=== PATIENT | female | born 1960 | race Caucasian/White ===

== ENCOUNTER 2022-01-10 07:57 | Outpatient (REF) | payer OTHER, SELFPAY ==
[2022-01-10 11:14] LABS: Hematocrit 41.7 % (37.0-47.0); Hemoglobin 13.8 g/dl (12.0-16.0); Mean Corpuscular HGB Conc 33.1 g/dl (31.0-35.0); Mean Corpuscular Hemoglobin 32.2 pg (27.0-33.0); Mean Corpuscular Volume 97.2 fL (80.0-98.0); Mean Platelet Volume 11.7 fL (9.4-12.3); Platelet Count 291 X10*3/uL (160-400); Red Blood Count 4.29 X10*6/uL (4.20-5.50); Red Cell Distribution Width 13.4 % (11.0-16.0); White Blood Count 6.1 X10*3/uL (4.8-10.8)
[2022-01-10 11:44] LABS: Alanine Aminotransferase 13 U/L (0-31); Albumin Level 4.2 g/dL (3.5-5.0); Alkaline Phosphatase 72 U/L (39-117); Anion Gap 13 (12-20); Aspartate Amino Transferase 15 U/L (5-31); Bilirubin Total 0.2 mg/dL (0.0-1.0); Blood Urea Nitrogen 17 mg/dL (9-16); Calcium 9.3 mg/dL (8.4-10.2); Carbon Dioxide 31 mmol/L (22-29); Chloride 102 mmol/L (96-108); Cholesterol 236 mg/dL; Estimated Glomerular Filt Rate > 60; Glucose Fasting 95 mg/dL (60-99); HDL Cholesterol 51 mg/dL; LDL Cholesterol Calculated 153 mg/dl; Potassium 4.2 mmol/L (3.3-5.1); Sodium 142 mmol/L (135-145); Total Protein 6.9 g/dL (6.5-8.0); Triglycerides 164 mg/dL
== END 2022-01-10 07:58 | disposition home or self-care (01) ==
LOC: HO.WFDLDS 07:57
PROVIDERS: Visit Provider Hospitalist
DX: Z00.00 Encounter for general adult medical examination without abnormal findings (principal); Z13.9 Encounter for screening, unspecified; E78.00 Pure hypercholesterolemia, unspecified; I10 Essential (primary) hypertension
CPT/HCPCS: 36415; 80053; 80061; 84443; 85027

== ENCOUNTER 2022-09-15 13:42 | Outpatient (REF) | payer OTHER, SELFPAY ==
--- NOTE | ~2022-09-15 | XR_ITS ---
EXAMINATION: XR HIP, RIGHT CLINICAL INFORMATION: Slipped upper femoral epiphysis nontraumatic COMPARISON: None available. TECHNIQUE: Two views of the right hip. FINDINGS: There is normal femoral head alignment with the acetabulum. The joint space is maintained. No loose bodies, periarticular spurring or soft tissue calcification. No acute fracture or dislocation. XR/XR hip RT min 2V IMPRESSION: Unremarkable right hip exam.
== END 2022-09-15 13:43 | disposition home or self-care (01) ==
LOC: HO.XRAY 13:42
PROVIDERS: PCP Hospitalist; Visit Provider Hospitalist
DX: M93.003 Unspecified slipped upper femoral epiphysis (nontraumatic), unspecified hip (principal); M25.551 Pain in right hip
CPT/HCPCS: 73502

== ENCOUNTER 2023-04-15 14:47 | Outpatient (AMB) | payer OTHER, SELFPAY ==
--- NOTE | 2023-04-15 15:02 | MHC.PC.OV ---
Vital Signs 04/15/23 15:03 Height 5 ft 1.5 in Weight 121 lb BMI 22.5 BP 130/88 Blood Pressure Location Lt brachial Position Sitting Respiration 13 Pulse 78 Pulse Source Pulse Oximeter Temp 97.5 F Temp Source Temporal Artery Scan Pulse Oximetry (%) 99 Oxygen Delivery Method Room Air Intake Visit Reasons: mood and high chol Intake Note: Patient has a patch of dry skin in middle of her palms that itches and sometimes bleed. Patient also has a ventolin Inhaler she would like refilled. 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 Accompanied by: Self / Same As Patient Allergies aspirin Adverse Reaction (Severe, Verified 04/15/23 15:17) Vomiting Seasonal Allergies Adverse Reaction (Intermediate, Verified 04/15/23 15:17) Nasal congestion adhesive Adverse Reaction (Mild, Verified 04/15/23 15:17) rash metal Adverse Reaction (Severe, Uncoded 04/15/23 15:17) hives Medication List - Last Reconciled 04/15/23 by Magalis Joseph CNP albuterol sulfate 90 mcg/actuation (Ventolin HFA) 2 puffs inhalation Q6H PRN atorvastatin 40 mg PO BEDTIME 90 days fluoxetine 40 mg PO DAILY 90 days hydrochlorothiazide 25 mg PO DAILY 90 days lisinopril 40 mg PO DAILY loratadine (Allergy Relief (loratadine)) 10 mg PO DAILY 90 days metoprolol tartrate 100 mg PO DAILY Tobacco use date assessed: 09/15/22 Fall risk assessment: 2 + Falls in past year Last assessed Fall Risk: 04/15/23 Dental Screening Dental Screen Date: 04/15/23 Did you have a dental visit in the last 12 months?: Yes Did you have a dental problem in the last 6 months where you did not have access to dental care?: No Was dental information given to patient?: Patient has dentist HPI HPI Comments History of Present Illness Details 62-year-old female presents for mood disorder and hyperlipidemia follow-up. She has past medical history significant for hypertension, hyperlipidemia, asthma, anxiety, and depression. Her former PCP was WADE, who no longer works for this office. Her last office visit was on 09/15/2022. She had a complete physical exam and blood work done in January 2022. Her Lab results were unrevealing except for elevated triglycerides, total cholesterol, and LDL, 164/236/156 respectively. She notes she has been taking her medication as prescribed. She reports controlled anxiety and depression symptoms on fluoxetine. She states she has attempted to connected to a therapist but was unsuccessful. She does not want therapy at this time. She reports dry skin to the middle of the palm of her right hand with occasional itching. She reports excessive using of her hands for physical work in and outside of her home. She uses hydrocortisone cream. [facility] Medical History (Updated 04/15/23 @ 15:48 by Magalis Joseph CNP) Injury of left lower arm No pertinent past medical history Surgical History (Updated 04/15/23 @ 15:14 by Kita Berman MA) History of surgery on left wrist No pertinent past surgical history Family History (Updated 04/15/23 @ 15:14 by Kita Berman MA) Other Mental health disorder Substance abuse Social History Housing: Other Housing Other:: mobile home Patient Tobacco Use Status: Former Tobacco user Tobacco use type: Cigarette e-Cigarette/Vaping Use: Never Used Second Hand Smoke Exposure: No service: No Current occupational status: retired Current occupational exposures/hazards: No Cognitive needs: No Hearing needs: No Vision needs: Yes Questionnaire PHQ-9 Over the last 2 weeks, how often have you been bothered by any of the following problems? 1. Little interest or pleasure in doing things: several days 2. Feeling down, depressed, or hopeless: not at all 3. Trouble falling or staying asleep, or sleeping too much: several days 4. Feeling tired or having little energy: several days 5. Poor appetite or overeating: not at all 6. Feeling bad about yourself - or that you are a failure or have let yourself or your family down: more than half the days 7. Trouble concentrating on things, such as reading the newspaper or watching television: not at all 8. Moving or speaking so slowly that other people could have noticed. Or the opposite - being so fidgety or restless that you have been moving around a lot more than usual: not at all 9. Thoughts that you would be better off or of hurting yourself in some way: not at all Total score: 5 Depression Screening Interpretation: Positive Depression Screening Follow-up: Existing condition and In treatment Depression Screening Done: Yes Source: Developed by Drs. Dov Melgar, Gina Ray, Brigido Leon and colleagues, with an educational guero from [employer]. Thrive Questionnaire Date Thrive assessed: 09/15/22 HUANG-7 AMB Questionnaire HUANG-7 Date HUANG - 7 assessed: 04/15/23 Feeling nervous, anxious, or on edge: 1 = Several days Not being able to stop or control worryin = Nearly every day Worrying too much about different things: 1 = Several days Trouble relaxin = Several days Being so restless that it is hard to sit still: 0 = Not at all Becoming easily annoyed or irritable: 1 = Several days Feeling afraid as if something awful might happen: 0 = Not at all Total HUANG-7 score (0-4 normal; 5-9 mild; 10-14 moderate; 15-21 severe): 7 Source: Developed by Drs. Dov Melgar, Gina Ray, Brigido Leon and colleagues, with an educational guero from [employer]. ACT Questionnaire In the past 4 weeks, how much of the time did your asthma keep you from getting as much done at work, school or at home?: Some of the time During the past 4 weeks, how often have you had shortness of breath?: 1-2 times a week During the past 4 weeks, how often did your asthma symptoms wake you up at night or earlier than usual in the morning?: Once a week During the past 4 weeks, how often have you had to use your rescue inhaler or nebulizer medication?: 1-2 times a week How would you rate your asthma control during the past 4 weeks?: Somewhat controlled ACT Interpretation: Positive Score: 15 Review of Systems Const Details: Const Denies chills, Denies fatigue, Denies fever(s), Denies headache(s) and Denies weakness ENT Denies dizziness and Denies headache(s) Card Denies chest pain, Denies lightheadedness, Denies dyspnea and Denies other (Palpitations) Resp Denies cough, Denies dyspnea, Denies wheezing and Denies other ( shortness of breath) GI Denies abdominal pain, Denies melena, Denies hematochezia, Denies change in bowel habits, Denies dyspepsia and Denies nausea Denies hematuria and Denies dysuria Musc Denies abnormal gait, Denies myalgias, Denies arthralgias, Denies numbness and Denies tingling Skin/Breast Denies rash, Denies unusual bruising and Denies wounds Neuro Denies abnormal gait, Denies dizziness, Denies headache(s), Denies memory loss, Denies numbness, Denies Sensory deficit (Neuro), Denies tingling and Denies weakness Psych Denies anxiety, Denies depression, Denies memory loss Endo Denies cold intolerance, Denies fatigue, Denies heat intolerance, Denies polydipsia and Denies polyuria Aller/Immun Denies wheezing Physical exam (Primary Care) Vital Signs: Last Vital Signs Temp 97.5 F 04/15/23 15:03 Pulse 78 04/15/23 15:03 Resp 13 04/15/23 15:03 BP 130/88 04/15/23 15:03 Pulse Ox 99 04/15/23 15:03 Oxygen Delivery Method Room Air 04/15/23 15:03 BMI result Body Mass Index 22.5 Tobacco/Smoking Status: Tobacco use Status Tobacco use date assessed 09/15/22 09/15/22 11:31 Patient Tobacco Use Status Former Tobacco user 09/15/22 11:31 Tobacco use type Cigarette 09/15/22 11:31 e-Cigarette/Vaping Use Never Used 09/15/22 11:31 Depression Screening Interpretation: Positive Depression Screening Follow-up: Existing condition and In treatment Thrive Assessment: Date of Thrive Assessment Date Thrive assessed 09/15/22 09/15/22 11:48 Const Other: General: no acute distress and well developed Nutritional Appearance: well nourished Orientation/consciousness: patient oriented x3 HENMT Head: Yes normocephalic and Yes atraumatic Eyes General: appearance normal, both eyes and all related structures Pupils: Equal, round and reactive pupils present EOM: EOMs intact bilaterally Resp Effort & Inspection: normal respiratory effort Auscultation: clear to auscultation bilaterally Cardio Rate: regular rate Rhythm: regular rhythm Heart sounds: S1 normal heart sound present, S2 normal heart sound present, no gallops, no murmurs and no rubs GI Palpation (GI): No Abdominal aortic bruit present, Soft to palpation, nontender, No hepatosplenomegaly present and No Rebound tenderness present Auscultation: normal bowel sounds General: Yes no CVA tenderness Back/Spine/Pelvis Back: no CVA tenderness Cervical Spine: cervical ROM normal and No Cervical spine tenderness Thoracic/Lumbar Spine: thoraco-lumbar ROM normal, No pain with thoraco-lumbar ROM, No thoracic spinal tenderness and No lumbar spinal tenderness Extrem General: Yes normal to inspection, No edema and No calf tenderness Skin General: warm and dry. Normal skin color. Normal skin turgor Lesions: no lesions Rashes: no rashes Trauma: no lacerations or abrasions Wounds: no wounds Nails: normal Neuro General: patient oriented x3, gait normal and no focal neuro deficit Cranial nerves: Yes Equal, round and reactive pupils present Cognition (Neuro): normal cognition Gait exam (Neuro): Normal gait present Sensory Exam: No Sensory deficit (Neuro) Psych Appearance: grossly normal Affect: normal affect Attitude: cooperative Thought process: Normal thought process present Assessment and Plan Assessment & Plan (1) Hypertension: Code(s): I10 - Essential (primary) hypertension Qualifiers: Hypertension type: primary hypertension Qualified Code(s): I10 - Essential (primary) hypertension Plan: Blood pressures control, 130/88, within goal of less than 140/90 Continue with current treatment regimen Low-sodium diet encouraged Follow-up in 1 month for complete physical exam Return sooner with symptoms or concerns Verbalized understanding and agreed with treatment plan. (2) High cholesterol: Code(s): E78.00 - Pure hypercholesterolemia, unspecified Plan: Elevated triglycerides, total cholesterol, and LDL, 164/236/156 respectively, in January 2023. Routine labs including lipid panel ordered. Will review results and make changes to her care plan as needed. (3) Anxiety and depression: Code(s): F41.9 - Anxiety disorder, unspecified; F32.A - Depression, unspecified Plan: HUANG-7 and PHQ-9 scores revealed mild anxiety and depression respectively Continue with current treatment regimen Routine exercise encouraged Follow-up in 1 month Return sooner with worsening or new symptoms Verbalized understanding and agreed with treatment plan. (4) Callus of hand: Code(s): L84 - Corns and callosities Plan: She reports dry skin to the middle of the palm of her right hand with occasional itching. She reports excessive using of her hands for physical work in and outside of her home. She uses hydrocortisone cream. Continue to use hydrocortisone cream for itching. Advised to use moisturizer for dry skin. Avoid excessive or repeated use of hand for physical work Return with worsening signs and symptoms Verbalized understanding and agreed with treatment plan. (5) Asthma: Code(s): J45.909 - Unspecified asthma, uncomplicated Plan: ACT score is 15 and indicates partially controlled asthma. Ventolin refilled. Use as prescribed. Follow-up in 1 month. Return sooner with worsening or new symptoms. Verbalized understanding and agreed with the treatment plan. (6) Laboratory tests ordered as part of a complete physical exam (CPE): Code(s): Z00.00 - Encounter for general adult medical examination without abnormal findings Plan: Fasting labs ordered as part of a complete physical exam. Advised to fast for at least 10 hours before getting labs drawn. May drink water Verbalized understanding and agreed with treatment plan. Orders: Orders Lipid Panel Today Z00.00 - Encounter for general adult medical examination without abnormal findings UA CC w/rflx Micro + Cult Today Z00.00 - Encounter for general adult medical examination without abnormal findings Complete Blood Count Auto Diff Today Z00.00 - Encounter for general adult medical examination without abnormal findings Comprehensive [place]. Panel Fast Today Z00.00 - Encounter for general adult medical examination without abnormal findings TSH reflex Free T4 Today Z00.00 - Encounter for general adult medical examination without abnormal findings Medications: Changed From albuterol sulfate 90 mcg/actuation (Ventolin HFA) 2 puffs inhalation Q6H PRN 8.5 grams 8RF shortness of breath or wheezing J45.20 - Mild intermittent asthma, uncomplicated To albuterol sulfate 90 mcg/actuation (Ventolin HFA) 2 puffs inhalation Q4-6H 30 days PRN 8.5 grams 6RF shortness of breath or wheezing J45.20 - Mild intermittent asthma, uncomplicated Coding Level of Care Code Est Pt Level 4 (85948) Diagnoses Primary hypertension I10 Hypertension type: primary hypertension High cholesterol E78.00 Anxiety and depression F41.9; F32.A Callus of hand L84 Asthma J45.909 Laboratory tests ordered as part of a complete physical exam (CPE) Z00.00
[2023-04-15 15:03] VITALS: BP 130/88; PULSE 78; RESP 13; TEMP 36.4; O2SAT 99; BMI 22.5
== END 2023-04-15 15:49 | disposition home or self-care (01) ==
PROVIDERS: PCP Hospitalist; Visit Provider Nurse Practitioner Family
DX: I10 Essential (primary) hypertension (principal); E78.00 Pure hypercholesterolemia, unspecified; F41.9 Anxiety disorder, unspecified; F32.A Depression, unspecified; L84 Corns and callosities; J45.909 Unspecified asthma, uncomplicated; Z00.00 Encounter for general adult medical examination without abnormal findings
CPT/HCPCS: 99214

== ENCOUNTER 2023-06-12 07:41 | Outpatient (REF) | payer OTHER, SELFPAY ==
[2023-06-12 12:16] LABS: MANUAL DIFF FLAG NO
[2023-06-12 12:33] LABS: Basophils Absolute Auto 0.1 X10*3/uL (0.0-0.2); Eosinophils Absolute Auto 0.1 X10*3/uL (0.0-0.4); Eosinophils Percent Auto 1.8 % (0-4); Hemoglobin 14.7 g/dl (12.0-16.0); Imm Gran Abs Auto 0.01 X10*3/uL (0.00-0.03); Imm Gran Pct Auto 0.1 % (0.0-0.4); Lymphocytes Absolute Auto 2.1 X10*3/uL (1.2-4.9); Lymphocytes Percent Auto 29.1 % (20-40); Mean Corpuscular HGB Conc 32.7 g/dl (31.0-35.0); Mean Corpuscular Hemoglobin 31.4 pg (27.0-33.0); Mean Corpuscular Volume 96.2 fL (80.0-98.0); Mean Platelet Volume 11.5 fL (9.4-12.3); Monocytes Absolute Auto 0.7 X10*3/uL (0.1-1.2); Monocytes Percent Auto 10.3 % (2-11); Neutrophils Absolute Auto 4.1 x10*3/uL (2.0-8.3); Neutrophils Percent Auto 57.7 % (45-73); Platelet Count 329 X10*3/uL (160-400); Red Blood Count 4.68 X10*6/uL (4.20-5.50); Red Cell Distribution Width 13.5 % (11.0-16.0); White Blood Count 7.1 X10*3/uL (4.8-10.8)
[2023-06-12 13:18] LABS: Alanine Aminotransferase 11 U/L (0-31); Albumin Level 4.2 g/dL (3.5-5.0); Alkaline Phosphatase 62 U/L (39-117); Anion Gap 15 (12-20); Aspartate Amino Transferase 14 U/L (5-31); Bilirubin Total 0.3 mg/dL (0.0-1.0); Blood Urea Nitrogen 18 mg/dL (9-16); Calcium 9.7 mg/dL (8.4-10.2); Carbon Dioxide 30 mmol/L (22-29); Chloride 102 mmol/L (96-108); Cholesterol 301 mg/dL (<200); Estimated Glomerular Filt Rate > 60; Glucose Fasting 104 mg/dL (60-99); HDL Cholesterol 54 mg/dL (>40); LDL Cholesterol Calculated 215 mg/dL (<100); Potassium 3.8 mmol/L (3.3-5.1); Sodium 143 mmol/L (135-145); Total Protein 7.8 g/dL (6.5-8.0); Triglycerides 161 mg/dL (<150)
[2023-06-12 13:50] LABS: TSH reflex Free T4 4.05 uIU/mL (0.32-4.0)
[2023-06-12 15:24] LABS: Free T4 (Free Thyroxine) 0.91 ng/dL (0.71-1.85)
== END 2023-06-12 07:42 | disposition home or self-care (01) ==
LOC: HO.WFDLDS 07:41
PROVIDERS: Visit Provider Nurse Practitioner Family
DX: Z00.00 Encounter for general adult medical examination without abnormal findings (principal)
CPT/HCPCS: 36415; 80053; 80061; 84439; 84443; 85025

== ENCOUNTER 2023-06-17 08:23 | Outpatient (AMB) | payer OTHER, SELFPAY ==
[2023-06-17 08:38] VITALS: BP 142/80; PULSE 57; RESP 13; O2SAT 99; BMI 21.6
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
== END 2023-06-17 09:28 | disposition home or self-care (01) ==
PROVIDERS: PCP Nurse Practitioner Family; Visit Provider Nurse Practitioner Family
DX: Z00.00 Encounter for general adult medical examination without abnormal findings (principal); E78.00 Pure hypercholesterolemia, unspecified; I10 Essential (primary) hypertension; F41.9 Anxiety disorder, unspecified; F32.A Depression, unspecified; E03.8 Other specified hypothyroidism; R73.01 Impaired fasting glucose; F17.210 Nicotine dependence, cigarettes, uncomplicated
CPT/HCPCS: 96127; 99396

== ENCOUNTER 2023-09-11 09:51 | Outpatient (AMB) | payer OTHER, SELFPAY ==
[2023-09-11 10:16] VITALS: BP 164/80; PULSE 62; RESP 13; TEMP 36.4; O2SAT 99; BMI 21.9
--- NOTE | 2023-09-11 10:16 | MHC.PC.OV ---
Vital Signs 09/11/23 10:16 09/11/23 11:32 Height 5 ft 1.5 in Weight 118 lb BMI 21.9 BP 164/80 H 160/90 H Blood Pressure Location Rt brachial Rt brachial Position Sitting Sitting Respiration 13 Pulse 62 96 Pulse Source Pulse Oximeter Palpation Temp 97.5 F Temp Source Temporal Artery Scan Pulse Oximetry (%) 99 Oxygen Delivery Method Room Air Intake Visit Reasons: f/u HLD, subclinical HT-H, elev fasting glucose Intake Note: Patient needs refill on fluoxetine and loratidine and lisinopril and metoprolol. 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 Accompanied by: Self / Same As Patient Allergies aspirin Adverse Reaction (Severe, Verified 09/11/23 11:25) Vomiting Seasonal Allergies Adverse Reaction (Intermediate, Verified 09/11/23 11:25) Nasal congestion adhesive Adverse Reaction (Mild, Verified 09/11/23 11:25) rash metal Adverse Reaction (Severe, Uncoded 09/11/23 11:25) hives Medication List - Last Reconciled 09/11/23 by Magalis Joseph CNP albuterol sulfate 90 mcg/actuation (Ventolin HFA) 2 puffs inhalation Q4-6H PRN 30 days atorvastatin 40 mg PO BEDTIME 90 days fluoxetine 40 mg PO DAILY 90 days hydrochlorothiazide 25 mg PO DAILY 90 days lisinopril 40 mg PO DAILY loratadine (Allergy Relief (loratadine)) 10 mg PO DAILY 90 days metoprolol tartrate 100 mg PO DAILY Tobacco use date assessed: 09/11/23 Fall risk assessment: 1 Fall in past year Last assessed Fall Risk: 09/11/23 Dental Screening Dental Screen Date: 09/11/23 Did you have a dental visit in the last 12 months?: No Did you have a dental problem in the last 6 months where you did not have access to dental care?: No Was dental information given to patient?: Patient has dentist HPI HPI Comments History of Present Illness Details In 62-year-old female presents for elevated fasting glucose, hyperlipidemia, and subclinical hypothyroidism follow-up She notes that she was unable to get her blood work done because she was too busy driving to and from [place] to provide care for her brother who is very ill. She has been fasting and plans doing blood work today She reports increased anxiety and depression with no known triggers She notes that her mother and 's anniversaries are approaching She denies acute symptoms at this time [facility] Medical History Injury of left lower arm No pertinent past medical history Surgical History History of surgery on left wrist No pertinent past surgical history Family History (Updated 09/11/23 @ 10:25 by Kita Berman MA) Brother Blindness Other Mental health disorder Substance abuse Social History Household Members: Significant Other and Other Housing: Other Housing Other:: mobile home Alcohol intake: current Alcohol intake frequency: holidays/special occasions only Patient Tobacco Use Status: Current someday Tobacco user Tobacco use type: Cigarette Cigarettes Per Day: 2 Years Smoked: 13 e-Cigarette/Vaping Use: Never Used Second Hand Smoke Exposure: No Substance Use Type: Marijuana service: No Current occupational status: retired Current occupational exposures/hazards: No Sexual orientation: Unable to collect Gender identity: Unable to collect Cognitive needs: No Hearing needs: No Vision needs: Yes Questionnaire PHQ-9 Over the last 2 weeks, how often have you been bothered by any of the following problems? 1. Little interest or pleasure in doing things: nearly every day 2. Feeling down, depressed, or hopeless: more than half the days 3. Trouble falling or staying asleep, or sleeping too much: several days 4. Feeling tired or having little energy: nearly every day 5. Poor appetite or overeating: several days 6. Feeling bad about yourself - or that you are a failure or have let yourself or your family down: nearly every day 7. Trouble concentrating on things, such as reading the newspaper or watching television: several days 8. Moving or speaking so slowly that other people could have noticed. Or the opposite - being so fidgety or restless that you have been moving around a lot more than usual: more than half the days 9. Thoughts that you would be better off or of hurting yourself in some way: not at all Total score: 16 Depression Screening Interpretation: Positive Depression Screening Follow-up: Existing condition and In treatment Depression Screening Done: Yes Source: Developed by Drs. Dov Melgar, Brigido Griffin and colleagues, with an educational guero from [employer]. Thrive Questionnaire Date Thrive assessed: 06/17/23 HUANG-7 AMB Questionnaire HUANG-7 Date HUANG - 7 assessed: 06/17/23 Feeling nervous, anxious, or on edge: 3 = Nearly every day Not being able to stop or control worryin = Nearly every day Worrying too much about different things: 3 = Nearly every day Trouble relaxin = More than half the days Being so restless that it is hard to sit still: 1 = Several days Becoming easily annoyed or irritable: 3 = Nearly every day Feeling afraid as if something awful might happen: 2 = More than half the days Total HUANG-7 score (0-4 normal; 5-9 mild; 10-14 moderate; 15-21 severe): 17 Source: Developed by Drs. Dov Melgar, Brigido Griffin and colleagues, with an educational guero from [employer]. Review of Systems Const Details: Const Denies chills, Denies fatigue, Denies fever(s), Denies headache(s) and Denies weakness ENT Denies dizziness and Denies headache(s) Card Denies chest pain, Denies lightheadedness, Denies dyspnea and Denies other (Palpitations) Resp Denies cough, Denies dyspnea, Denies wheezing and Denies other ( shortness of breath) GI Denies abdominal pain, Denies melena, Denies hematochezia, Denies change in bowel habits, Denies dyspepsia and Denies nausea Denies hematuria and Denies dysuria Musc Denies abnormal gait, Denies myalgias, Denies arthralgias, Denies numbness and Denies tingling Skin/Breast Denies rash, Denies unusual bruising and Denies wounds Neuro Denies abnormal gait, Denies dizziness, Denies headache(s), Denies memory loss, Denies numbness, Denies Sensory deficit (Neuro), Denies tingling and Denies weakness Psych Reports anxiety, Reports depression, Denies memory loss Endo Denies cold intolerance, Denies fatigue, Denies heat intolerance, Denies polydipsia and Denies polyuria Aller/Immun Denies wheezing Physical exam (Primary Care) Vital Signs: Last Vital Signs Temp 97.5 F 09/11/23 10:16 Pulse 62 09/11/23 10:16 Resp 13 09/11/23 10:16 BP 164/80 H 09/11/23 10:16 Pulse Ox 99 09/11/23 10:16 Oxygen Delivery Method Room Air 09/11/23 10:16 BMI result Body Mass Index 21.9 Tobacco/Smoking Status: Tobacco use Status Tobacco use date assessed 09/11/23 09/11/23 10:23 Patient Tobacco Use Status Current someday Tobacco 09/11/23 10:23 Tobacco use type Cigarette 09/11/23 10:23 e-Cigarette/Vaping Use Never Used 09/11/23 10:23 Depression Screening Interpretation: Positive Depression Screening Follow-up: Existing condition and In treatment Thrive Assessment: Date of Thrive Assessment Date Thrive assessed 06/17/23 09/11/23 10:23 Const Other: General: no acute distress and well developed Nutritional Appearance: well nourished Orientation/consciousness: patient oriented x3 HENMT Head: Yes normocephalic and Yes atraumatic Eyes General: appearance normal, both eyes and all related structures Pupils: Equal, round and reactive pupils present EOM: EOMs intact bilaterally Resp Effort & Inspection: normal respiratory effort Auscultation: clear to auscultation bilaterally Cardio Rate: regular rate Rhythm: regular rhythm Heart sounds: S1 normal heart sound present, S2 normal heart sound present, no gallops, no murmurs and no rubs GI Palpation (GI): No Abdominal aortic bruit present, Soft to palpation, nontender, No hepatosplenomegaly present and No Rebound tenderness present Auscultation: normal bowel sounds General: Yes no CVA tenderness Back/Spine/Pelvis Back: no CVA tenderness Cervical Spine: cervical ROM normal and No Cervical spine tenderness Thoracic/Lumbar Spine: thoraco-lumbar ROM normal, No pain with thoraco-lumbar ROM, No thoracic spinal tenderness and No lumbar spinal tenderness Extrem General: Yes normal to inspection, No edema and No calf tenderness Skin General: warm and dry. Normal skin color. Normal skin turgor Neuro General: patient oriented x3, gait normal and no focal neuro deficit Cranial nerves: Yes Equal, round and reactive pupils present Cognition (Neuro): normal cognition Gait exam (Neuro): Normal gait present Sensory Exam: No Sensory deficit (Neuro) Psych Appearance: grossly normal Affect: normal affect Attitude: cooperative Thought process: Normal thought process present Assessment and Plan Assessment & Plan (1) Hypertension: Code(s): I10 - Essential (primary) hypertension Qualifiers: Hypertension type: primary hypertension Qualified Code(s): I10 - Essential (primary) hypertension Plan: Resting blood pressure is 160/90, above goal of less than 140/90, heart rate is 96 Will increase metoprolol to 75 mg twice daily. Take as prescribed Continue to take lisinopril 40 mg daily Low-sodium diet encouraged Follow-up in 3 weeks or return sooner with symptoms or concerns Verbalized understanding and agreed with treatment plan (2) Anxiety and depression: Code(s): F41.9 - Anxiety disorder, unspecified; F32.A - Depression, unspecified Plan: Reports increased anxiety and depression with unknown triggers She has a caregiver of her brother who is very ill. Her mother's and 's anniversaries are approaching PHQ-9 and HUANG-7 scores revealed moderately severe depression and severe anxiety respectively Will start buspirone 7.5 mg twice daily. Take as prescribed Continue to take fluoxetine as prescribed Routine exercise encouraged Follow-up in 3 weeks or return sooner with worsening or new symptoms Verbalized understanding and agreed with treatment plan (3) Subclinical hypothyroidism: Code(s): E03.8 - Other specified hypothyroidism Plan: She has not gotten blood work done and plans on doing so today Advised to get blood work done Follow-up in 3 weeks Verbalized understanding and agreed with the plan (4) Elevated fasting glucose: Code(s): R73.01 - Impaired fasting glucose Plan: She has not gotten blood work done and plans on doing so today Advised to get blood work done Follow-up in 3 weeks Verbalized understanding and agreed with the plan (5) High cholesterol: Code(s): E78.00 - Pure hypercholesterolemia, unspecified Plan: She has not gotten blood work done and plans on doing so today Advised to get blood work done Follow-up in 3 weeks Verbalized understanding and agreed with the plan Medications: New buspirone 7.5 mg PO BID 30 days 60 tabs 3RF metoprolol tartrate 75 mg PO BID 30 days 60 tabs 3RF Changed From lisinopril 40 mg PO DAILY To lisinopril 40 mg PO DAILY 30 days 30 tabs 3RF Coding Level of Care Code Est Pt Level 4 (63474) Diagnoses Primary hypertension I10 Hypertension type: primary hypertension Anxiety and depression F41.9; F32.A Subclinical hypothyroidism E03.8 Elevated fasting glucose R73.01 High cholesterol E78.00
[2023-09-11 11:32] VITALS: BP 160/90; PULSE 96
== END 2023-09-11 11:26 | disposition home or self-care (01) ==
PROVIDERS: PCP Nurse Practitioner Family; Visit Provider Nurse Practitioner Family
DX: I10 Essential (primary) hypertension (principal); F41.9 Anxiety disorder, unspecified; F32.A Depression, unspecified; E03.8 Other specified hypothyroidism; R73.01 Impaired fasting glucose; E78.00 Pure hypercholesterolemia, unspecified
CPT/HCPCS: 99214

== ENCOUNTER 2023-09-11 11:36 | Outpatient (REF) | payer OTHER, SELFPAY ==
[2023-09-11 15:22] LABS: Appearance Urine Cloudy; Color Urine Yellow; Glucose Urine UA Negative (Negative); Leukocyte Esterase Urine Negative (Negative); Nitrite Urine Negative (Negative); Specific Gravity - Urine 1.015 (1.005-1.025); Urine Blood Negative (Negative); Urine Ketones Negative (Negative); Urine Protein Negative (Neg-Trace)
[2023-09-11 15:56] LABS: Cholesterol 260 mg/dL (<200); Glucose Fasting 88 mg/dL (60-99); HDL Cholesterol 60 mg/dL (>40); LDL Cholesterol Calculated 166 mg/dL (<100); Triglycerides 170 mg/dL (<150)
[2023-09-11 16:11] LABS: TSH reflex Free T4 2.59 uIU/mL (0.32-4.0)
== END 2023-09-11 11:37 | disposition home or self-care (01) ==
LOC: HO.WFDLDS 11:36
PROVIDERS: Visit Provider Nurse Practitioner Family
DX: Z00.00 Encounter for general adult medical examination without abnormal findings (principal); E78.00 Pure hypercholesterolemia, unspecified; E03.8 Other specified hypothyroidism; R73.01 Impaired fasting glucose
CPT/HCPCS: 36415; 80061; 81003; 82947; 84443

== ENCOUNTER 2023-10-02 14:56 | Outpatient (AMB) | payer OTHER, SELFPAY ==
[2023-10-02 15:02] VITALS: BP 142/70; PULSE 58; RESP 13; TEMP 36.2; O2SAT 97; BMI 21.7
--- NOTE | 2023-10-02 15:02 | A.OFFPC_ITS ---
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 Accompanied by: Self / Same As Patient Allergies aspirin Adverse Reaction (Severe, Verified 10/02/23 15:20) Vomiting Seasonal Allergies Adverse Reaction (Intermediate, Verified 10/02/23 15:20) Nasal congestion adhesive Adverse Reaction (Mild, Verified 10/02/23 15:20) rash metal Adverse Reaction (Severe, Uncoded 10/02/23 15:20) hives Medication List - Last Reconciled 10/02/23 by Magalis Joseph CNP albuterol sulfate 90 mcg/actuation (Ventolin HFA) 2 puffs inhalation Q4-6H PRN 30 days atorvastatin 40 mg PO BEDTIME 90 days buspirone 7.5 mg PO BID 30 days fluoxetine 40 mg PO DAILY 90 days lisinopril 40 mg PO DAILY 30 days loratadine (Allergy Relief (loratadine)) 10 mg PO DAILY 90 days metoprolol tartrate 75 mg PO BID 30 days Tobacco use date assessed: 09/11/23 Fall risk assessment: 2 + Falls in past year Last assessed Fall Risk: 10/02/23 Dental Screening Dental Screen Date: 09/11/23 Did you have a dental visit in the last 12 months?: No Did you have a dental problem in the last 6 months where you did not have access to dental care?: No Was dental information given to patient?: Patient has dentist HPI HPI Comments History of Present Illness Details 62-year-old female presents for hyperten rola, hyperlipidemia, subclinical hypothyroidism, and elevated fasting glucose follow-up She admits to taking her medications as prescribed without adverse reactions. However, she notes has not taken hydrochlorothiazide for the past 3 weeks because she ran out of refills She notes that her anxiety and depression symptoms have improved since Buspirone was added to her treatment regimen 2 weeks ago. She has been making healthy lifestyle changes, including healthy diet and walking She worries a lot about her younger brother who is legally blind in both eyes and [place] of [place]. She is his primary caregiver and just returned from taking care of him today; they celebrated their mother's memorial 2 days ago [facility] was notified in June 2023 to referred the patient to a therapist. She notes that she has not been contacted to establish with a therapist She denies SI/HI/AVH Recent triglycerides, total cholesterol, and LDL levels elevated, 170, 260 when 166 respectively; recent TSH and fasting glucose is normal [facility] Medical History Injury of left lower arm No pertinent past medical history Surgical History History of surgery on left wrist No pertinent past surgical history Family History (Updated 09/11/23 @ 10:25 by Kita Berman MA) Brother Blindness Other Mental health disorder Substance abuse Social History Household Members: Significant Other and Other Housing: Other Housing Other:: mobile home Alcohol intake: current Alcohol intake frequency: holidays/special occasions only Patient Tobacco Use Status: Former Tobacco user Tobacco use type: Cigarette Cigarettes Per Day: 2 Years Smoked: 13 e-Cigarette/Vaping Use: Never Used Second Hand Smoke Exposure: No Substance Use Type: Marijuana service: No Current occupational status: retired Current occupational exposures/hazards: No Sexual orientation: Unable to collect Gender identity: Unable to collect Cognitive needs: No Hearing needs: No Vision needs: Yes Questionnaire PHQ-9 Over the last 2 weeks, how often have you been bothered by any of the following problems? 1. Little interest or pleasure in doing things: nearly every day 2. Feeling down, depressed, or hopeless: nearly every day 3. Trouble falling or staying asleep, or sleeping too much: several days 4. Feeling tired or having little energy: several days 5. Poor appetite or overeating: several days 6. Feeling bad about yourself - or that you are a failure or have let yourself or your family down: nearly every day 7. Trouble concentrating on things, such as reading the newspaper or watching television: not at all 8. Moving or speaking so slowly that other people could have noticed. Or the opposite - being so fidgety or restless that you have been moving around a lot more than usual: several days 9. Thoughts that you would be better off or of hurting yourself in some way: several days Total score: 14 Depression Screening Interpretation: Positive Depression Screening Follow-up: Existing condition, In treatment, Change in Medication and Community Mental Health Worker F/U Depression Screening Done: Yes 53300 - PHQ-9 Billing: Yes Source: Developed by Drs. Dov Melgar, Gina Ray, Brigido Leon and colleagues, with an educational guero from [employer]. Thrive Questionnaire Date Thrive assessed: 06/17/23 HUANG-7 AMB Questionnaire HUANG-7 Date HUANG - 7 assessed: 10/02/23 Feeling nervous, anxious, or on edge: 2 = More than half the days Not being able to stop or control worryin = Nearly every day Worrying too much about different things: 3 = Nearly every day Trouble relaxin = Several days Being so restless that it is hard to sit still: 3 = Nearly every day Becoming easily annoyed or irritable: 3 = Nearly every day Feeling afraid as if something awful might happen: 1 = Several days Total HUANG-7 score (0-4 normal; 5-9 mild; 10-14 moderate; 15-21 severe): 16 Source: Developed by Drs. Dov Melgar, Gina Ray, Brigido Leon and colleagues, with an educational guero from [employer]. HUANG-7 Assessment Billing HUANG-7 Assessment Tool: HUANG-7 Assessment 30867 Review of Systems Const Details: Const Denies chills, Denies fatigue, Denies fever(s), Denies headache(s) and Denies weakness ENT Denies dizziness and Denies headache(s) Card Denies chest pain, Denies lightheadedness, Denies dyspnea and Denies other (Palpitations) Resp Denies cough, Denies dyspnea, Denies wheezing and Denies other ( shortness of breath) GI Denies abdominal pain, Denies melena, Denies hematochezia, Denies change in bowel habits, Denies dyspepsia and Denies nausea Denies hematuria and Denies dysuria Musc Denies abnormal gait, Denies myalgias, Denies arthralgias, Denies numbness and Denies tingling Skin/Breast Denies rash, Denies unusual bruising and Denies wounds Neuro Denies abnormal gait, Denies dizziness, Denies headache(s), Denies memory loss, Denies numbness, Denies Sensory deficit (Neuro), Denies tingling and Denies weakness Psych Reports anxiety, Reports depression, Denies memory loss Endo Denies cold intolerance, Denies fatigue, Denies heat intolerance, Denies p olydipsia and Denies polyuria Aller/Immun Denies wheezing Physical exam (Primary Care) Tobacco/Smoking Status: Tobacco use Status Tobacco use date assessed 09/11/23 09/11/23 10:23 Patient Tobacco Use Status Current someday Tobacco 09/11/23 10:23 Tobacco use type Cigarette 09/11/23 10:23 e-Cigarette/Vaping Use Never Used 09/11/23 10:23 Depression Screening Interpretation: Positive Depression Screening Follow-up: Existing condition, In treatment, Change in Medication and Community Mental Health Worker F/U Thrive Assessment: Date of Thrive Assessment Date Thrive assessed 06/17/23 09/11/23 10:23 Const Other: General: no acute distress and well developed Nutritional Appearance: well nourished Orientation/consciousness: patient oriented x3 HENMT Head: Yes normocephalic and Yes atraumatic Eyes General: appearance normal, both eyes and all related structures Pupils: Equal, round and reactive pupils present EOM: EOMs intact bilaterally Resp Effort & Inspection: normal respiratory effort Auscultation: clear to auscultation bilaterally Cardio Rate: regular rate Rhythm: regular rhythm Heart sounds: S1 normal heart sound present, S2 normal heart sound present, no gallops, no murmurs and no rubs GI Palpation (GI): No Abdominal aortic bruit present, Soft to palpation, nontender, No hepatosplenomegaly present and No Rebound tenderness present Auscultation: normal bowel sounds General: Yes no CVA tenderness Back/Spine/Pelvis Back: no CVA tenderness Cervical Spine: cervical ROM normal and No Cervical spine tenderness Thoracic/Lumbar Spine: thoraco-lumbar ROM normal, No pain with thoraco-lumbar ROM, No thoracic spinal tenderness and No lumbar spinal tenderness Extrem General: Yes normal to inspection, No edema and No calf tenderness Skin General: warm and dry. Normal skin color. Normal skin turgor Neuro General: patient oriented x3, gait normal and no focal neuro deficit Cranial nerves: Yes Equal, round and reactive pupils present Cognition (Neuro): normal cognition Gait exam (Neuro): Normal gait present Sensory Exam: No Sensory deficit (Neuro) Psych Appearance: grossly normal Affect: normal affect Attitude: cooperative Thought process: Normal thought process present Assessment and Plan Assessment & Plan (1) Hypertension: Code(s): I10 - Essential (primary) hypertension Qualifiers: Hypertension type: primary hypertension Qualified Code(s): I10 - Essential (primary) hypertension Plan: Resting blood pressure is 142/70, slightly above goal of less than 140/90 Hydrochlorothiazide refilled. Take as prescribed Continue to take metoprolol and lisinopril as prescribed Low-sodium diet encouraged Follow-up in 6 weeks or return sooner with symptoms or concerns Verbalized understanding and agreed with treatment plan (2) High cholesterol: Code(s): E78.00 - Pure hypercholesterolemia, unspecified Plan: Recent triglycerides, total cholesterol, and LDL levels elevated, 170, 260 when 166 respectively Will increase atorvastatin to 80 mg daily at bedtime. Advised to take as prescribed Advised to limit foods high in saturated fat and avoid foods high trans fat Routine exercise encouraged Will recheck lipid panel. Advised to fast for 10-12 hours, may drink water only, and get blood work done before next visit Follow-up in 6 weeks Verbalized understanding and agreed with treatment plan (3) Elevated fasting glucose: Code(s): R73.01 - Impaired fasting glucose Plan: Recent fasting glucose is 88, normal Healthy diet and routine exercise encouraged Verbalized understanding and agreed with the plan (4) Subclinical hypothyroidism: Code(s): E03.8 - Other specified hypothyroidism Plan: Recent TSH is normal, 2.59. Previous TSH was slightly elevated, 4.05 No treatment indicated at this time (5) Anxiety and depression: Code(s): F41.9 - Anxiety disorder, unspecified; F32.A - Depression, unspecified Plan: Reports improved anxiety and depression symptoms on current treatment regimen PHQ-9 and HUANG-7 scores revealed moderate depression and severe anxiety respectively Will increase buspirone to 10 mg twice daily. Take as prescribed Continue to take fluoxetine as prescribed Routine exercise encouraged She met with the [facility] her would assistance to connect to a therapist Follow-up in 6 weeks or return sooner with worsening or new symptoms Verbalized understanding and agreed with treatment Orders: Orders Lipid Panel 6 Weeks E78.00 - Pure hypercholesterolemia, unspecified Medications: New buspirone 10 mg PO BID 30 days 60 tabs 3RF atorvastatin 80 mg PO BEDTIME 90 days 90 tabs 1RF Refilled hydrochlorothiazide 25 mg PO DAILY 90 days 90 tabs 1RF Discontinued atorvastatin Discontinued Reason: Doctor's Order 40 mg PO BEDTIME 90 days 90 tabs 3RF buspirone Discontinued Reason: Doctor's Order 7.5 mg PO BID 30 days 60 tabs 3RF Coding Level of Care Code Est Pt Level 4 (50063) Diagnoses Primary hypertension I10 Hypertension type: primary hypertension High cholesterol E78.00 Elevated fasting glucose R73.01 Subclinical hypothyroidism E03.8 Anxiety and depression F41.9; F32.A Additional Codes HUANG-7 Assessment Billing - HUANG-7 Assessment Tool: HUANG-7 Assessment [id number] ([id number])
== END 2023-10-02 15:52 | disposition home or self-care (01) ==
PROVIDERS: PCP Nurse Practitioner Family; Visit Provider Nurse Practitioner Family
DX: I10 Essential (primary) hypertension (principal); E78.00 Pure hypercholesterolemia, unspecified; R73.01 Impaired fasting glucose; E03.8 Other specified hypothyroidism; F41.9 Anxiety disorder, unspecified; F32.A Depression, unspecified
CPT/HCPCS: 96127; 99214

== ENCOUNTER 2023-11-10 08:05 | Outpatient (REF) | payer MEDICARE, SELFPAY ==
[2023-11-10 12:45] LABS: Cholesterol 193 mg/dL (<200); HDL Cholesterol 61 mg/dL (>40); LDL Cholesterol Calculated 113 mg/dL (<100); Triglycerides 97 mg/dL (<150)
== END 2023-11-10 08:06 | disposition home or self-care (01) ==
LOC: HO.WFDLDS 08:05
PROVIDERS: Visit Provider Nurse Practitioner Family
DX: E78.00 Pure hypercholesterolemia, unspecified (principal)
CPT/HCPCS: 36415; 80061

== ENCOUNTER 2023-11-13 13:00 | Outpatient (AMB) | payer MEDICARE, MEDICAID, SELFPAY ==
[2023-11-13 13:18] VITALS: BP 126/74; PULSE 71; RESP 14; TEMP 36.4; O2SAT 99; BMI 22.4
--- NOTE | 2023-11-13 13:18 | MHC.PC.OV ---
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 Accompanied by: Self / Same As Patient Allergies aspirin Adverse Reaction (Severe, Verified 11/13/23 13:31) Vomiting Seasonal Allergies Adverse Reaction (Intermediate, Verified 11/13/23 13:31) Nasal congestion adhesive Adverse Reaction (Mild, Verified 11/13/23 13:31) rash metal Adverse Reaction (Severe, Uncoded 11/13/23 13:31) hives Medication List - Last Reconciled 11/13/23 by Magalis Joseph CNP albuterol sulfate 90 mcg/actuation (Ventolin HFA) 2 puffs inhalation Q4-6H PRN 30 days atorvastatin 80 mg PO BEDTIME 90 days buspirone 10 mg PO BID 30 days fluoxetine 40 mg PO DAILY 90 days hydrochlorothiazide 25 mg PO DAILY 90 days lisinopril 40 mg PO DAILY 30 days loratadine (Allergy Relief (loratadine)) 10 mg PO DAILY 90 days metoprolol tartrate 75 mg PO BID 30 days Tobacco use date assessed: 09/11/23 Fall risk assessment: No Falls in past year Last assessed Fall Risk: 11/13/23 Dental Screening Dental Screen Date: 09/11/23 HPI HPI Comments History of Present Illness Details 62-year-old female presents for hypertension, hyperlipidemia, anxiety, and depression follow-up She admits to taking her medications as prescribed without adverse reactions She reports controlled anxiety and depression symptoms on current treatment regimen She offers no complaints and denies acute symptoms at this time [facility] Medical History Injury of left lower arm No pertinent past medical history Surgical History History of surgery on left wrist No pertinent past surgical history Family History Brother Blindness Other Mental health disorder Substance abuse Social History Household Members: Significant Other and Other Housing: Other Housing Other:: mobile home Alcohol intake: current Alcohol intake frequency: holidays/special occasions only Patient Tobacco Use Status: Former Tobacco user Tobacco use type: Cigarette Cigarettes Per Day: 2 Years Smoked: 13 e-Cigarette/Vaping Use: Never Used Second Hand Smoke Exposure: No Substance Use Type: Marijuana service: No Current occupational status: retired Current occupational exposures/hazards: No Sexual orientation: Unable to collect Gender identity: Unable to collect Cognitive needs: No Hearing needs: No Vision needs: Yes Questionnaire PHQ-9 Over the last 2 weeks, how often have you been bothered by any of the following problems? 1. Little interest or pleasure in doing things: several days 2. Feeling down, depressed, or hopeless: nearly every day 3. Trouble falling or staying asleep, or sleeping too much: nearly every day 4. Feeling tired or having little energy: nearly every day 5. Poor appetite or overeating: not at all 6. Feeling bad about yourself - or that you are a failure or have let yourself or your family down: nearly every day 7. Trouble concentrating on things, such as reading the newspaper or watching television: not at all 8. Moving or speaking so slowly that other people could have noticed. Or the opposite - being so fidgety or restless that you have been moving around a lot more than usual: not at all 9. Thoughts that you would be better off or of hurting yourself in some way: not at all Total score: 13 Depression Screening Interpretation: Positive Depression Screening Follow-up: Existing condition and In treatment Depression Screening Done: Yes 19480 - PHQ-9 Billing: Yes Source: Developed by Drs. Dov Melgar, Gina Ray, Brigido Leon and colleagues, with an educational guero from [employer]. Thrive Questionnaire Date Thrive assessed: 06/17/23 HUANG-7 AMB Questionnaire HUANG-7 Date HUANG - 7 assessed: 11/13/23 Feeling nervous, anxious, or on edge: 1 = Several days Not being able to stop or control worryin = Nearly every day Worrying too much about different things: 3 = Nearly every day Trouble relaxin = Several days Being so restless that it is hard to sit still: 1 = Several days Becoming easily annoyed or irritable: 0 = Not at all Feeling afraid as if something awful might happen: 3 = Nearly every day Total HUANG-7 score (0-4 normal; 5-9 mild; 10-14 moderate; 15-21 severe): 12 Source: Developed by Drs. Dov Melgar, Gina Ray, Brigido Leon and colleagues, with an educational guero from [employer]. HUANG-7 Assessment Billing HUANG-7 Assessment Tool: HUANG-7 Assessment 80816 Review of Systems Const Details: Denies chills, Denies fatigue, Denies fever(s), Denies headache(s) and Denies weakness HEENT Denies change in vision, Denies dizziness, Denies headache(s), Denies hearing loss, Denies nasal congestion, Denies sinus pain, Denies sinus pressure and Denies sore throat Card Denies chest pain, Denies lightheadedness, Denies dyspnea and Denies other (palpitations) Resp Denies cough, Denies dyspnea and Denies wheezing GI Denies abdominal pain, Denies melena, Denies hematochezia, Denies change in bowel habits, Denies dyspepsia and Denies nausea Denies hematuria and Denies dysuria Musc Denies abnormal gait, Denies myalgias, Denies arthralgias, Denies numbness and Denies tingling Skin/Breast Denies rash, Denies unusual bruising and Denies wounds Neuro Denies abnormal gait, Denies dizziness, Denies headache(s), Denies memory loss, Denies numbness, Denies Sensory deficit (Neuro), Denies tingling and Denies weakness Psych Denies anxiety, Denies depression and Denies memory loss Endo Denies cold intolerance, Denies fatigue, Denies heat intolerance, Denies polydipsia and Denies polyuria Sumit/Lymph Denies easy bleeding and Denies easy bruising Aller/Immun Denies wheezing Physical exam (Primary Care) Vital Signs: Last Vital Signs Temp 97.6 F 11/13/23 13:18 Pulse 71 11/13/23 13:18 Resp 14 11/13/23 13:18 BP 126/74 11/13/23 13:18 Pulse Ox 99 11/13/23 13:18 Oxygen Delivery Method Room Air 11/13/23 13:18 BMI result Body Mass Index 22.4 Tobacco/Smoking Status: Tobacco use Status Tobacco use date assessed 09/11/23 11/13/23 13:28 Patient Tobacco Use Status Former Tobacco user 11/13/23 13:28 Tobacco use type Cigarette 11/13/23 13:28 e-Cigarette/Vaping Use Never Used 11/13/23 13:28 PHQ-9: PHQ-9 Score PHQ-9: Total score 13 11/13/23 13:28 Depression Screening Interpretation: Positive Depression Screening Follow-up: Existing condition and In treatment Thrive Assessment: Date of Thrive Assessment Date Thrive assessed 06/17/23 11/13/23 13:28 Const Other: General: no acute distress, well developed, alert and awake Nutritional Appearance: well nourished Orientation/consciousness: patient oriented x3 HENMT Head: Yes normocephalic and Yes atraumatic Ears: hearing grossly normal bilaterally and TM's normal bilaterally General nose exam: Normal external nose present and Normal nares present Mouth: Normal oral and palatal mucosa present and moist mucous membranes Teeth and gingiva: dentition normal Throat: Yes oropharynx normal Eyes Pupils: Equal, round and reactive pupils present and Pupil accommodation reflex normal EOM: EOMs intact bilaterally Neck Neck: Yes normal visual inspection, Yes no lymphadenopathy and Yes trachea midline Thyroid: Thyroid normal Carotids: no bruits Lymphatic: no lymphadenopathy noted Chest Chest palpation & inspection: normal inspection of the chest Resp Effort & Inspection: normal respiratory effort Auscultation: clear to auscultation bilaterally Cardio Rate: regular rate Rhythm: regular rhythm Heart sounds: S1 normal heart sound present, S2 normal heart sound present, no gallops, no murmurs and no rubs Bruits: no abdominal aortic bruits and no carotid bruits GI Palpation (GI): No Abdominal aortic bruit present, Soft to palpation, nontender, No hepatosplenomegaly present and No Rebound tenderness present Auscultation: normal bowel sounds General: Yes no CVA tenderness Back/Spine/Pelvis Back: no CVA tenderness Cervical Spine: cervical ROM normal and No Cervical spine tenderness Thoracic/Lumbar Spine: thoraco-lumbar ROM normal, No pain with thoraco-lumbar ROM, No thoracic spinal tenderness and No lumbar spinal tenderness Skin General: warm and dry. Normal skin color. Normal skin turgor Lesions: no lesions Rashes: no rashes Trauma: no lacerations or abrasions Wounds: no wounds Nails: normal Neuro General: patient oriented x3, gait normal and CN's II-XI intact bilaterally Cranial nerves: Yes Equal, round and reactive pupils present Cognition (Neuro): normal cognition Gait exam (Neuro): Normal gait present Motor exam (neuro): 5/5 motor strength present throughout Sensory Exam: No Sensory deficit (Neuro) Deep tendon reflexes (DTR's): Right patellar reflex intensity grade: 2+ and Left patellar reflex intensity grade: 2+ Extrem General: Yes normal to inspection, No edema and No calf tenderness Psych Appearance: grossly normal Affect: normal affect Attitude: cooperative Thought process: Normal thought process present Assessment and Plan Assessment & Plan (1) Hypertension: Code(s): I10 - Essential (primary) hypertension Qualifiers: Hypertension type: primary hypertension Qualified Code(s): I10 - Essential (primary) hypertension Plan: Blood pressure today is 126/74, within goal of less than 140/90 Continue current treatment regimen Low-sodium diet encouraged Follow-up in 1 month for an extended physical exam or return sooner with symptoms or concerns Verbalized understanding and agreed with treatment plan (2) High cholesterol: Code(s): E78.00 - Pure hypercholesterolemia, unspecified Plan: Recent triglycerides, total cholesterol, LDL, and HDL level with normal readings, 97, 193, 113, and 61 respectively Continue current treatment regimen Advised to limit foods high in saturated fat and avoid foods high in trans fat Routine exercise encouraged Will recheck lipid levels in 3 months Verbalized understanding and agreed with treatment plan (3) Anxiety and depression: Code(s): F41.9 - Anxiety disorder, unspecified; F32.A - Depression, unspecified Plan: Controlled anxiety and depression symptoms PHQ-9 and HUANG-7 scores revealed moderate depression and anxiety respectively Continue current treatment regimen Routine exercise encouraged Follow-up with worsening or new symptoms Verbalized understanding and agreed with treatment plan Coding Level of Care Code Est Pt Level 4 (01073) Complex EM visit Add On G2211 Diagnoses Primary hypertension I10 Hypertension type: primary hypertension High cholesterol E78.00 Anxiety and depression F41.9; F32.A Additional Codes HUANG-7 Assessment Billing - HUANG-7 Assessment Tool: HUANG-7 Assessment 82026 ([id number])
== END 2023-11-13 15:11 | disposition home or self-care (01) ==
PROVIDERS: PCP Nurse Practitioner Family; Visit Provider Nurse Practitioner Family
DX: I10 Essential (primary) hypertension (principal); E78.00 Pure hypercholesterolemia, unspecified; F41.9 Anxiety disorder, unspecified; F32.A Depression, unspecified
CPT/HCPCS: 99214; G2211

== ENCOUNTER 2023-12-18 10:33 | Outpatient (AMB) | payer MEDICARE, MEDICAID, SELFPAY ==
[2023-12-18 10:36] VITALS: BP 132/74; PULSE 63; RESP 14; TEMP 36.5; O2SAT 99; BMI 21.6
--- NOTE | 2023-12-18 10:36 | A.OFFPC_ITS ---
Vital Signs 12/18/23 10:36 12/18/23 10:59 Height 5 ft 1.5 in Weight 116 lb 5 oz BMI 21.6 BP 132/74 126/80 Blood Pressure Location Rt brachial Lt brachial Position Sitting Sitting Respiration 14 Pulse 63 Pulse Source Pulse Oximeter Temp 97.7 F Temp Source Temporal Artery Scan Pulse Oximetry (%) 99 Oxygen Delivery Method Room Air Intake Visit Reasons: CPE - see comments Intake Note: Patient needs a refill on lisinopril. Trouble Clerk Required: No Accompanied by: Self / Same As Patient Allergies aspirin Adverse Reaction (Severe, Verified 12/18/23 10:44) Vomiting Seasonal Allergies Adverse Reaction (Intermediate, Verified 12/18/23 10:44) Nasal congestion adhesive Adverse Reaction (Mild, Verified 12/18/23 10:44) rash metal Adverse Reaction (Severe, Uncoded 12/18/23 10:44) hives Medication List - Last Reconciled 12/18/23 by Magalis Joseph CNP albuterol sulfate 90 mcg/actuation (Ventolin HFA) 2 puffs inhalation Q4-6H PRN 30 days atorvastatin 80 mg PO BEDTIME 90 days buspirone 10 mg PO BID 30 days fluoxetine 40 mg PO DAILY 90 days hydrochlorothiazide 25 mg PO DAILY 90 days lisinopril 40 mg PO DAILY 30 days loratadine (Allergy Relief (loratadine)) 10 mg PO DAILY 90 days metoprolol tartrate 75 mg PO BID 30 days Tobacco use date assessed: 12/18/23 Fall risk assessment: No Falls in past year Last assessed Fall Risk: 12/18/23 Dental Screening Dental Screen Date: 09/11/23 HPI HPI Comments History of Present Illness Details 63-year-old female presents for hyperten rola, anxiety, and depression follow-up She admits to taking her medications as prescribed without adverse reactions. However, she has not been taking lisinopril since he was prescribed in 09/2023; she notes she was informed by the pharmacy that the prescription was never received She notes controlled anxiety and depressive symptoms She states that she has been maintaining a healthy diet including low salt and have been walking everyday She offers no complaints and denies acute symptoms at this time [facility] Medical History Injury of left lower arm No pertinent past medical history Surgical History History of surgery on left wrist No pertinent past surgical history Family History Brother Blindness Other Mental health disorder Substance abuse Social History Household Members: Significant Other and Other Housing: Other Housing Other:: mobile home Alcohol intake: current Alcohol intake frequency: holidays/special occasions only Patient Tobacco Use Status: Former Tobacco user Tobacco use type: Cigarette Cigarettes Per Day: 2 Years Smoked: 13 e-Cigarette/Vaping Use: Never Used Second Hand Smoke Exposure: No Substance Use Type: Marijuana service: No Current occupational status: retired Current occupational exposures/hazards: No Sexual orientation: Unable to collect Gender identity: Unable to collect Cognitive needs: No Hearing needs: No Vision needs: Yes Questionnaire PHQ-9 Over the last 2 weeks, how often have you been bothered by any of the following problems? 1. Little interest or pleasure in doing things: not at all 2. Feeling down, depressed, or hopeless: not at all 3. Trouble falling or staying asleep, or sleeping too much: nearly every day 4. Feeling tired or having little energy: several days 5. Poor appetite or overeating: several days 6. Feeling bad about yourself - or that you are a failure or have let yourself or your family down: several days 7. Trouble concentrating on things, such as reading the newspaper or watching television: not at all 8. Moving or speaking so slowly that other people could have noticed. Or the opposite - being so fidgety or restless that you have been moving around a lot more than usual: not at all 9. Thoughts that you would be better off or of hurting yourself in some way: not at all Total score: 6 Depression Screening Interpretation: Positive Depression Screening Follow-up: Existing condition and In treatment Depression Screening Done: Yes 60199 - PHQ-9 Billing: Yes Source: Developed by Drs. Dov Melgar, Gina Ray, Brigido Leon and colleagues, with an educational guero from [employer]. Thrive Questionnaire Date Thrive assessed: 06/17/23 HUANG-7 AMB Questionnaire HUANG-7 Date HUANG - 7 assessed: 12/18/23 Feeling nervous, anxious, or on edge: 1 = Several days Not being able to stop or control worryin = Nearly every day Worrying too much about different things: 3 = Nearly every day Trouble relaxin = Several days Being so restless that it is hard to sit still: 0 = Not at all Becoming easily annoyed or irritable: 1 = Several days Feeling afraid as if something awful might happen: 0 = Not at all Total HUANG-7 score (0-4 normal; 5-9 mild; 10-14 moderate; 15-21 severe): 9 Source: Developed by Drs. Dov Melgar, Gina Ray, Brigido Leon and colleagues, with an educational guero from [employer]. HUANG-7 Assessment Billing HUANG-7 Assessment Tool: HUANG-7 Assessment 26349 Review of Systems Const Details: Const Denies chills, Denies fatigue, Denies fever(s), Denies headache(s) and Denies weakness ENT Denies dizziness and Denies headache(s) Card Denies chest pain, Denies lightheadedness, Denies dyspnea and Denies other (Palpitations) Resp Denies cough, Denies dyspnea, Denies wheezing and Denies other ( shortness of breath) GI Denies abdominal pain, Denies melena, Denies hematochezia, Denies change in bowel habits, Denies dyspepsia and Denies nausea Denies hematuria and Denies dysuria Musc Denies abnormal gait, Denies myalgias, Denies arthralgias, Denies numbness and D enies tingling Skin/Breast Denies rash, Denies unusual bruising and Denies wounds Neuro Denies abnormal gait, Denies dizziness, Denies headache(s), Denies memory loss, Denies numbness, Denies Sensory deficit (Neuro), Denies tingling and Denies weakness Psych Denies anxiety, Denies depression, Denies memory loss Endo Denies cold intolerance, Denies fatigue, Denies heat intolerance, Denies polydipsia and Denies polyuria Aller/Immun Denies wheezing Physical exam (Primary Care) Vital Signs: Last Vital Signs Temp 97.7 F 12/18/23 10:36 Pulse 63 12/18/23 10:36 Resp 14 12/18/23 10:36 BP 132/74 12/18/23 10:36 Pulse Ox 99 12/18/23 10:36 Oxygen Delivery Method Room Air 12/18/23 10:36 BMI result Body Mass Index 21.6 Tobacco/Smoking Status: Tobacco use Status Tobacco use date assessed 09/11/23 11/13/23 13:28 Patient Tobacco Use Status Former Tobacco user 11/13/23 13:28 Tobacco use type Cigarette 11/13/23 13:28 e-Cigarette/Vaping Use Never Used 11/13/23 13:28 Depression Screening Interpretation: Positive Depression Screening Follow-up: Existing condition and In treatment Thrive Assessment: Date of Thrive Assessment Date Thrive assessed 06/17/23 11/13/23 13:28 Const Other: General: no acute distress and well developed Nutritional Appearance: well nourished Orientation/consciousness: patient oriented x3 HENMT Head: Yes normocephalic and Yes atraumatic Eyes General: appearance normal, both eyes and all related structures Pupils: Equal, round and reactive pupils present EOM: EOMs intact bilaterally Resp Effort & Inspection: normal respiratory effort Auscultation: clear to auscultation bilaterally Cardio Rate: regular rate Rhythm: regular rhythm Heart sounds: S1 normal heart sound present, S2 normal heart sound present, no gallops, no murmurs and no rubs GI Palpation (GI): No Abdominal aortic bruit present, Soft to palpation, nontender, No hepatosplenomegaly present and No Rebound tenderness present Auscultation: normal bowel sounds General: Yes no CVA tenderness Back/Spine/Pelvis Back: no CVA tenderness Cervical Spine: cervical ROM normal and No Cervical spine tenderness Thoracic/Lumbar Spine: thoraco-lumbar ROM normal, No pain with thoraco-lumbar ROM, No thoracic spinal tenderness and No lumbar spinal tenderness Extrem General: Yes normal to inspection, No edema and No calf tenderness Skin General: warm and dry. Normal skin color. Normal skin turgor Neuro General: patient oriented x3, gait normal and no focal neuro deficit Cranial nerves: Yes Equal, round and reactive pupils present Cognition (Neuro): normal cognition Gait exam (Neuro): Normal gait present Sensory Exam: No Sensory deficit (Neuro) Psych Appearance: grossly normal Affect: normal affect Attitude: cooperative Thought process: Normal thought process present Assessment and Plan Assessment & Plan (1) Hypertension: Code(s): I10 - Essential (primary) hypertension Qualifiers: Hypertension type: primary hypertension Qualified Code(s): I10 - Essential (primary) hypertension Plan: Blood pressure is 126/80, within goal of less than 140/90 Continue to take metoprolol 75 mg twice daily and hydrochlorothiazide 25 mg daily The MA called the pharmacy and was informed that the patient picked up 1 month supply of lisinopril 40 mg daily in September and never picked up refills. Will not refill lisinopril at this time due to controlled blood pressure Low-sodium diet encouraged Follow-up in 3 months for hypertension, hyperlipidemia, anxiety, and depression or sooner with symptoms or concerns Verbalized understanding and agreed with the treatment plan (2) Anxiety and depression: Code(s): F41.9 - Anxiety disorder, unspecified; F32.A - Depression, unspecified Plan: Reports controlled anxiety and depressive symptoms PHQ-9 and HUANG-7 scores revealed mild depression and anxiety Continue current treatment regimen Routine exercise encouraged Follow-up in 3 months or sooner with symptoms or concerns Verbalized understanding and agreed with the plan (3) High cholesterol: Code(s): E78.00 - Pure hypercholesterolemia, unspecified Plan: Recent triglycerides, total cholesterol, LDL, and HDL levels are normal, 97, 193, 113, and 61 respectively Continue current treatment regimen Advised to limit foods high in saturated fat and avoid foods high in trans fat Routine exercise encouraged Will recheck lipid panel. Advised to fast for 10-12 hours, may drink water only, and get blood work done a few days before next visit Follow-up in 3 months Verbalized understanding and agreed with treatment plan Orders: Orders Lipid Panel 3 Months E78.00 - Pure hypercholesterolemia, unspecified Medications: Refilled metoprolol tartrate 75 mg PO BID 30 days 60 tabs 3RF Discontinued lisinopril Discontinued Reason: Doctor's Order 40 mg PO DAILY 30 days 30 tabs 3RF Coding Level of Care Code Est Pt Level 4 (33932) Complex EM visit Add On G2211 Diagnoses Primary hypertension I10 Hypertension type: primary hypertension Anxiety and depression F41.9; F32.A High cholesterol E78.00 Additional Codes HUANG-7 Assessment Billing - HUANG-7 Assessment Tool: HUANG-7 Assessment 14858 ([id number])
[2023-12-18 10:59] VITALS: BP 126/80
== END 2023-12-18 11:06 | disposition home or self-care (01) ==
PROVIDERS: PCP Nurse Practitioner Family; Visit Provider Nurse Practitioner Family
DX: I10 Essential (primary) hypertension (principal); F41.9 Anxiety disorder, unspecified; F32.A Depression, unspecified; E78.00 Pure hypercholesterolemia, unspecified
CPT/HCPCS: 99214; G2211